=== PATIENT | female | born 1940 | race Caucasian/White ===

== ENCOUNTER 2021-09-21 10:09 | Inpatient (IN) | payer OTHER, BC ==
[2021-09-13 11:55] VITALS: BMI 32.1
[~2021-09-21 10:09] MED LIST: CEFAZOLIN 2 GM in DEXTROSE 5%-WATER - 50 ML IVPB ONE; CELECOXIB 200 MG CAPSULE PO ONE
[2021-09-21] MEDS ORDERED: TRANEXAMIC ACID 1000 MG/10 ML VIAL IVPUSH ONE (10:30)
[2021-09-21] MEDS ORDERED: CELECOXIB 200 MG CAPSULE ONE (11:24)
[2021-09-21] MEDS ORDERED: CELECOXIB 200 MG CAPSULE PO ONE (11:25)
[2021-09-21] MEDS ORDERED: VANCOMYCIN 1,000 MG VIAL (RESTRICTED TO ID ONLY) ONE (12:15)
[2021-09-21] MEDS ORDERED: ceFAZolin SODIUM 1 GM VIAL ONE ×3 (12:15→21:23)
[2021-09-21] MEDS ORDERED: ROPIVACAINE HCL/PF 100 MG/20 ML VIAL ONE (12:26)
[2021-09-21] MEDS ORDERED: MIDAZOLAM HCL 2 MG/2 ML SINGLE DOSE VIAL ONE ×2 (12:26→14:07)
[2021-09-21] MEDS ORDERED: oxyCODONE HCL 5 MG TABLET PO PRN (12:49)
[2021-09-21] MEDS ORDERED: PROMETHAZINE HCL 25 MG/1 ML VIAL IVPUSH PRN (12:49)
[2021-09-21] MEDS ORDERED: ONDANSETRON 4 MG/2 ML VIAL IVPUSH PRN (12:49)
[2021-09-21] MEDS ORDERED: LACTATED RINGERS SOLUTION 1,000 ML IV SCH ×2 (13:00→13:45)
[2021-09-21] MEDS ORDERED: SODIUM CHLORIDE 0.9% P/F 10 ML VIAL IJ ONE (13:21)
[2021-09-21] MEDS ORDERED: BUPIVACAINE HCL 50 ML ONE (13:22)
[2021-09-21] MEDS ORDERED: MAG HYDROX/AL HYDROX/SIMETH 30 ML UNIT-DOSE CUP PO PRN (13:36)
[2021-09-21] MEDS ORDERED: ONDANSETRON 4 MG/2 ML VIAL ONE (14:00)
[2021-09-21] MEDS ORDERED: ACETAMINOPHEN 1000 MG/100 ML BAG IVPB ONE (14:00)
[2021-09-21] MEDS ORDERED: VANCOMYCIN 1,000 MG VIAL (RESTRICTED TO ID ONLY) IVPB ONE (14:40)
[2021-09-21] MEDS ORDERED: KETOROLAC TROMETHAMINE 30 MG/1 ML VIAL ONE (15:26)
[2021-09-21] MEDS ORDERED: ACETAMINOPHEN INJECTION 100 ML IVPB ONE (15:26)
[2021-09-21] MEDS: KETOROLAC TROMETHAMINE 30 MG/1 ML VIAL IVPUSH SCH ×2 (15:55→19:36)
[2021-09-21] MEDS ORDERED: diphenhydrAMINE HCL 25 MG CAPSULE (FP) PO PRN (17:12)
[2021-09-21] MEDS: oxyCODONE HCL 5 MG TABLET PO PRN ×2 (19:04→23:12)
[2021-09-21] MEDS: glipiZIDE 5 MG TABLET (FP) PO SCH (19:23)
[2021-09-21] MEDS ORDERED: DEXTROSE 5%-WATER - 50 ML IVPB ONE (21:23)
[2021-09-21] MEDS: CEFAZOLIN 2 GM in DEXTROSE 5%-WATER - 50 ML IVPB SCH (21:27)
[2021-09-21] MEDS: ACETAMINOPHEN 500 MG TABLET (FP) PO SCH (21:27)
[2021-09-21] MEDS: SENNOSIDES/DOCUSATE COMBO (SENNA PLUS) TABLET (UD) PO SCH (21:27)
[2021-09-21] MEDS: INSULIN SLIDING SCALE (NOVOLOG) 1 VIAL SQ SCH (21:30)
[2021-09-22] MEDS: oxyCODONE HCL 5 MG TABLET PO PRN ×5 (01:53→20:25)
[2021-09-22] MEDS: ACETAMINOPHEN 500 MG TABLET (FP) PO SCH ×4 (02:01→20:25)
[2021-09-22] MEDS ORDERED: ceFAZolin SODIUM 1 GM VIAL ONE (04:54)
[2021-09-22] MEDS ORDERED: DEXTROSE 5%-WATER - 50 ML IVPB ONE (04:54)
[2021-09-22] MEDS: CEFAZOLIN 2 GM in DEXTROSE 5%-WATER - 50 ML IVPB SCH (05:26)
[2021-09-22] MEDS: INSULIN SLIDING SCALE (NOVOLOG) 1 VIAL SQ SCH ×4 (06:15→21:22)
[2021-09-22] MEDS: glipiZIDE 5 MG TABLET (FP) PO SCH ×2 (06:17→16:41)
[2021-09-22 07:32] LABS: HEMATOCRIT 35.5 % (32.4-45.2); MCH 32.4 pg (25.7-33.7); MCHC 33.7 g/dl (32.0-36.0); MEAN CELL VOLUME 96.2 fl (80-96); MEAN PLT VOLUME 8.7 fl (7.5-11.1); PLATELET COUNT 163.6 10^3/uL (134-434); RBC 3.69 10^6/uL (3.60-5.2); WHITE BLOOD COUNT 7.8 10^3/uL (4.0-10.8)
[2021-09-22 07:35] LABS: ALBUMIN 3.2 g/dl (3.4-5.0); BILIRUBIN,TOTAL 0.9 mg/dl (0.2-1); CALCIUM 8.6 mg/dl (8.5-10); CREATININE 0.9 mg/dl (0.55-1.3); MAGNESIUM 1.6 mg/dL (1.8-2.4); TOT PROT 5.8 g/dl (6.4-8.2)
[2021-09-22] MEDS: ASPIRIN 325 MG TABLET PO SCH (08:42)
[2021-09-22] MEDS: FUROSEMIDE 20 MG TABLET (FP) PO SCH (09:49)
[2021-09-22] MEDS: NEBIVOLOL 10 MG TABLET (FP) PO SCH (09:50)
[2021-09-22] MEDS: MULTIVITAMINS (DAILY MVI) TABLET (FP) PO SCH (09:50)
[2021-09-22] MEDS: PANTOPRAZOLE 40 MG TABLET PO SCH (09:51)
[2021-09-22] MEDS: SENNOSIDES/DOCUSATE COMBO (SENNA PLUS) TABLET (UD) PO SCH ×2 (09:51→21:22)
[2021-09-22] MEDS ORDERED: MAGNESIUM SULF 50% (8.12 MEQ/2 ML-1 GM VIAL) IVPB ONE (11:34)
[2021-09-22] MEDS ORDERED: MAGNESIUM 1GM/D5W - 1 GM/100 ML IVPB IVPB ONE (12:00)
[2021-09-22] MEDS ORDERED: POTASSIUM CHLORIDE TABS 10 MEQ TABLET.ER (FP) PO ONE (12:00)
[2021-09-22] MEDS: ROSUVASTATIN CA 10 MG TABLET PO SCH (21:22)
[2021-09-23] MEDS: oxyCODONE HCL 5 MG TABLET PO PRN ×2 (01:58→06:01)
[2021-09-23] MEDS: ACETAMINOPHEN 500 MG TABLET (FP) PO SCH ×4 (02:00→21:07)
[2021-09-23] MEDS: INSULIN SLIDING SCALE (NOVOLOG) 1 VIAL SQ SCH ×4 (05:59→21:17)
[2021-09-23] MEDS: glipiZIDE 5 MG TABLET (FP) PO SCH ×3 (06:02→20:01)
[2021-09-23 08:06] LABS: HEMATOCRIT 33.9 % (32.4-45.2); HEMOGLOBIN 11.5 G/dL (10.7-15.3); MCH 32.3 pg (25.7-33.7); MEAN CELL VOLUME 95.2 fl (80-96); MEAN PLT VOLUME 8.8 fl (7.5-11.1); RBC 3.56 10^6/uL (3.60-5.2); RDW 14.4 % (11.6-15.6); WHITE BLOOD COUNT 8.7 10^3/uL (4.0-10.8)
[2021-09-23] MEDS: NEBIVOLOL 10 MG TABLET (FP) PO SCH (09:10)
[2021-09-23] MEDS: ASPIRIN 325 MG TABLET PO SCH (09:10)
[2021-09-23] MEDS: FUROSEMIDE 20 MG TABLET (FP) PO SCH (09:10)
[2021-09-23] MEDS: MULTIVITAMINS (DAILY MVI) TABLET (FP) PO SCH (09:12)
[2021-09-23] MEDS: KETOROLAC TROMETHAMINE 30 MG/1 ML VIAL IVPUSH SCH ×3 (09:12→21:07)
[2021-09-23] MEDS: PANTOPRAZOLE 40 MG TABLET PO SCH (09:14)
[2021-09-23] MEDS: SENNOSIDES/DOCUSATE COMBO (SENNA PLUS) TABLET (UD) PO SCH ×2 (09:14→21:17)
[2021-09-23] MEDS: ROSUVASTATIN CA 10 MG TABLET PO SCH (21:07)
[2021-09-24] MEDS: ACETAMINOPHEN 500 MG TABLET (FP) PO SCH ×2 (04:00→09:22)
[2021-09-24] MEDS: glipiZIDE 5 MG TABLET (FP) PO SCH (06:07)
[2021-09-24] MEDS: KETOROLAC TROMETHAMINE 30 MG/1 ML VIAL IVPUSH SCH (06:08)
[2021-09-24] MEDS: INSULIN SLIDING SCALE (NOVOLOG) 1 VIAL SQ SCH ×2 (06:14→11:49)
[2021-09-24 06:57] VITALS: BP 144/68; PULSE 73; TEMP 98.3
[2021-09-24] MEDS: NEBIVOLOL 10 MG TABLET (FP) PO SCH (09:22)
[2021-09-24] MEDS: PANTOPRAZOLE 40 MG TABLET PO SCH (09:23)
[2021-09-24] MEDS: ASPIRIN 325 MG TABLET PO SCH (09:23)
[2021-09-24] MEDS: MULTIVITAMINS (DAILY MVI) TABLET (FP) PO SCH (09:23)
[2021-09-24] MEDS: FUROSEMIDE 20 MG TABLET (FP) PO SCH (09:23)
[2021-09-24] MEDS: SENNOSIDES/DOCUSATE COMBO (SENNA PLUS) TABLET (UD) PO SCH (09:27)
== END 2021-09-24 12:58 | DRG 470 ==
LOC: UNDOADMIN 10:09 → FM/S 10:09
PROVIDERS: ADMIT Orthopaedic Surgery; ATTEND Orthopaedic Surgery
PROC: 8E0W0CZ Robotic Assisted Procedure of Trunk Region, Open Approach (ICD-10-PCS; 2021-09-21)
PROC: 0SRB0JZ Replacement of Left Hip Joint with Synthetic Substitute, Open Approach (ICD-10-PCS; principal; 2021-09-21 14:05)
DX: M16.12 Unilateral primary osteoarthritis, left hip (principal); I10 Essential (primary) hypertension; E11.9 Type 2 diabetes mellitus without complications; R01.1 Cardiac murmur, unspecified; Z96.642 Presence of left artificial hip joint
CPT/HCPCS: 36415; 73502-TC-LT-FY; 80053; 82962; 83735; 85027; 88305-TC; 88311-TC; 94760; 97010-GP; 97116-GP; 97163-GP; C9803-CS; U0003; U0005

== ENCOUNTER 2023-05-30 09:56 | Inpatient (IN) | payer OTHER, BC ==
[2023-05-30 10:43] VITALS: RESP 24; TEMP 101.2; BMI 34.0
[2023-05-30 11:20] LABS: VENOUS BASE EXCESS -20.1 mmol/L (-2-2); VENOUS O2 SATURATION 66.4 % (70-80); VENOUS PCO2 27.3 mmHg (38-52)
[2023-05-30] MEDS ORDERED: PIPERACILLIN/TAZOBACTAM 4.5 GM VIAL IVPB ONE (11:20)
[2023-05-30] MEDS ORDERED: ACETAMINOPHEN 1000 MG/100 ML BAG IVPB ONE (11:21)
[2023-05-30 11:22] LABS: VENOUS PH 7.097 (7.310-7.410)
[2023-05-30] MEDS ORDERED: VANCOMYCIN 1 GRAM (PRE-DOCKED) 1,000 MG/250 ML BAG IVPB ONE ×2 (11:30→12:01)
[2023-05-30] MEDS ORDERED: LACTATED RINGERS SOLUTION 1,000 ML/1,000 ML INFUS.BAG IV SCH ×2 (11:30)
[2023-05-30 11:39] LABS: CHLORIDE 99 mmol/L (98-107); SODIUM 136 mmol/L (136-145)
[2023-05-30 11:41] LABS: ALBUMIN 2.7 g/dl (3.4-5.0); CO2 10 mmol/L (21-32)
[2023-05-30 11:42] LABS: BLOOD UREA NITROGEN 40.6 mg/dL (7-18)
[2023-05-30 11:44] LABS: SGPT/ALT 86 U/L (13-61)
[2023-05-30 11:45] LABS: SGOT/AST 126 U/L (15-37)
[2023-05-30 11:46] LABS: BILIRUBIN,TOTAL 1.2 mg/dL (0.2-1); TOT PROT 7.6 g/dl (6.4-8.2)
[2023-05-30 11:47] LABS: ALK PHOS 423 U/L (45-117)
[2023-05-30 11:51] LABS: LACTIC ACID 10.8 mmol/L (0.4-2.0)
[2023-05-30 11:52] LABS: ANION GAP 27 mmol/L (4-13); GLUCOSE,RANDOM 438 mg/dL (74-106); POTASSIUM 7.5 mmol/L (3.5-5.1)
[2023-05-30] MEDS ORDERED: ACETAMINOPHEN INJECTION 100 ML IVPB ONE (12:01)
[2023-05-30] MEDS ORDERED: PIPERACILLIN/TAZOB 4.5 GM 4.5 GM/100 ML BAG IVPB ONE (12:01)
[2023-05-30 12:06] LABS: HEMATOCRIT 44.2 % (32.4-45.2); MCH 28.5 pg (25.7-33.7); MCHC 29.4 g/dl (32.0-36.0); MEAN PLT VOLUME 9.4 fl (7.5-11.1); PLATELET COUNT 112 10^3/uL (134-434); RBC 4.56 M/mm3 (3.60-5.2); RDW 19.1 % (11.6-15.6)
[2023-05-30 12:16] LABS: WHITE BLOOD COUNT 37.9 K/mm3 (4.0-10.0)
[2023-05-30 12:45] LABS: INR 2.17 (0.83-1.09)
[2023-05-30 12:48] LABS: ACTIVATED PTT 38.4 SECONDS (25.2-36.5)
[2023-05-30] MEDS ORDERED: DEXAMETHASONE SOD PHOSPHATE 10 MG/1 ML VIAL IVPUSH SCH (13:00)
[2023-05-30 13:02] LABS: CHLORIDE 101 mmol/L (98-107); POTASSIUM 5.3 mmol/L (3.5-5.1); SODIUM 135 mmol/L (136-145)
[2023-05-30 13:04] LABS: ANION GAP 25 mmol/L (4-13); BLOOD UREA NITROGEN 40.1 mg/dL (7-18); CALCIUM 10.1 mg/dL (8.5-10.1); CO2 9 mmol/L (21-32)
[2023-05-30 13:05] LABS: ALBUMIN 2.7 g/dl (3.4-5.0)
[2023-05-30 13:07] LABS: CREATININE 2.2 mg/dL (0.55-1.3); SGPT/ALT 97 U/L (13-61)
[2023-05-30 13:08] LABS: SGOT/AST 121 U/L (15-37)
[2023-05-30 13:09] LABS: BILIRUBIN,TOTAL 1.3 mg/dL (0.2-1); TOT PROT 7.4 g/dl (6.4-8.2)
[2023-05-30 13:10] LABS: ALK PHOS 447 U/L (45-117)
[2023-05-30 13:16] LABS: GLUCOSE,RANDOM 435 mg/dL (74-106)
[2023-05-30] MEDS ORDERED: LACTATED RINGERS SOLUTION 2,000 ML IV STA (13:28)
[2023-05-30] MEDS ORDERED: KETAMINE HCL 200 MG/20 ML VIAL IVPUSH ONE (13:53)
[2023-05-30] MEDS ORDERED: ROCURONIUM BROMIDE 50 MG/5 ML VIAL IVPUSH ONE (13:54)
[2023-05-30 13:58] LABS: VENOUS BASE EXCESS -25.3 mmol/L (-2-2); VENOUS O2 SATURATION 85.5 % (70-80)
[2023-05-30] MEDS ORDERED: LACTATED RINGERS SOLUTION 1,000 ML IV STA (13:58)
[2023-05-30] MEDS ORDERED: DEXAMETHASONE SOD PHOSPHATE 10 MG/1 ML VIAL ONE (13:58)
[2023-05-30] MEDS ORDERED: INSULIN REGULAR HUMAN 100 UNITS/ML *VIAL IVPUSH ONE (13:58)
[2023-05-30 14:02] LABS: VENOUS PH 6.954 (7.310-7.410)
[2023-05-30] MEDS ORDERED: KETAMINE HCL 200 MG/20 ML VIAL ONE (14:11)
[2023-05-30] MEDS ORDERED: ROCURONIUM BROMIDE 50 MG/5 ML SYRINGE ONE (14:11)
[2023-05-30] MEDS ORDERED: PHENYLEPHRINE HCL 10 MG/1 ML SINGLE DOSE VIAL ONE (14:24)
[2023-05-30] MEDS ORDERED: EPINEPHrine 1:10,000 (P-F SYR) 1 MG/10 ML DISP.SYRIN ONE (14:26)
[2023-05-30] MEDS ORDERED: PHENYLEPHRINE HCL 10 MG/1 ML SINGLE DOSE VIAL IVPB ONE (14:27)
[2023-05-30] MEDS ORDERED: RAPID SEQUENCE INTUBATION KIT NR ONE (14:30)
[2023-05-30] MEDS ORDERED: SODIUM BICARBONATE 8.4% 50 MEQ/50 ML DISP.SYRIN IVPUSH ONE (14:32)
[2023-05-30 14:35] LABS: CHLORIDE 101 mmol/L (98-107); POTASSIUM 5.4 mmol/L (3.5-5.1); SODIUM 139 mmol/L (136-145)
[2023-05-30] MEDS ORDERED: SODIUM BICARBONATE 8.4% 50 MEQ/50 ML DISP.SYRIN ONE ×2 (14:35→15:03)
[2023-05-30 14:37] LABS: ALBUMIN 2.2 g/dl (3.4-5.0); ANION GAP 31 mmol/L (4-13); CALCIUM 9.8 mg/dL (8.5-10.1); CO2 7 mmol/L (21-32)
[2023-05-30 14:38] LABS: BLOOD UREA NITROGEN 40.4 mg/dL (7-18)
[2023-05-30 14:40] LABS: SGPT/ALT 129 U/L (13-61)
[2023-05-30 14:41] LABS: CREATININE 2.3 mg/dL (0.55-1.3)
[2023-05-30 14:42] LABS: BILIRUBIN,TOTAL 1.2 mg/dL (0.2-1); TOT PROT 5.8 g/dl (6.4-8.2)
[2023-05-30] MEDS ORDERED: NOREPINEPHRINE BITARTRATE 4,000 MCG in DEXTROSE 5%-WATER - 496 ML IV SCH (14:45)
[2023-05-30] MEDS ORDERED: NOREPINEPHRINE BITARTRATE 4 MG/4 ML ML IV ONE (14:48)
[2023-05-30 14:49] LABS: ALK PHOS 340 U/L (45-117); GLUCOSE,RANDOM 446 mg/dL (74-106)
[2023-05-30 14:55] LABS: LACTIC ACID 16.8 mmol/L (0.4-2.0)
[2023-05-30 15:01] LABS: SGOT/AST 279 U/L (15-37)
[2023-05-30] MEDS ORDERED: INSULIN DRIP - PLEASE ORDER UNDER SETS NR ONE (15:07)
[2023-05-30 15:09] VITALS: BP 91/67; PULSE 78
[2023-05-30] MEDS: EPINEPHrine 1:10,000 (P-F SYR) 1 MG/10 ML DISP.SYRIN IVPUSH ONE ×2 (15:17→16:01)
[2023-05-30] MEDS ORDERED: SODIUM BICARBONATE 8.4% - 150 MEQ in DEXTROSE 5%-WATER - 950 ML IVPB SCH (15:30)
[2023-05-30] MEDS ORDERED: SODIUM BICARBONATE 8.4% 50 MEQ/50 ML VIAL IVPUSH ONE (15:44)
[2023-05-30] MEDS: EPINEPHrine 1:1,000 1,000 MCG/ML ML IV ONE ×2 (15:51→16:02)
[2023-05-30] MEDS ORDERED: EPINEPHrine 1:10,000 (P-F SYR) 1 MG/10 ML DISP.SYRIN IVPUSH ONE (16:16)
== END 2023-05-30 18:01 | disposition expired | DRG 871 ==
LOC: JER 09:56 → JERBED 13:48
PROVIDERS: ADMIT Internal Medicine Pulmonary Disease; ATTEND Internal Medicine Pulmonary Disease
PROC: 0BH17EZ Insertion of Endotracheal Airway into Trachea, Via Natural or Artificial Opening (ICD-10-PCS; principal; 2023-05-30)
PROC: 5A1935Z Respiratory Ventilation, Less than 24 Consecutive Hours (ICD-10-PCS; 2023-05-30)
DX: A41.89 Other specified sepsis (principal); E11.10 Type 2 diabetes mellitus with ketoacidosis without coma; U07.1 COVID-19; J96.01 Acute respiratory failure with hypoxia; I47.20 Ventricular tachycardia, unspecified; N17.9 Acute kidney failure, unspecified; R65.20 Severe sepsis without septic shock; I10 Essential (primary) hypertension; Z96.642 Presence of left artificial hip joint
CPT/HCPCS: 0241U-QW; 36415; 71045-TC-FY; 80053; 82010; 82550; 82553; 82803; 82962; 83605; 84484; 85025; 85610; 85730; 86850; 86900; 86901; 87040; 87186; 93005; 93010; 99291; J1100